=== PATIENT | male | born 1950 | race Two or more races ===

== ENCOUNTER 2017-02-13 20:35 | Emergency (ER) | payer MEDICARE, OTHER ==
[~2017-02-13] VITALS: Ht 182.9 cm; Wt 111.1 kg
[2017-02-13 20:40] VITALS: BP 116/95
[2017-02-13 21:07] LABS: Basophils # (auto) 0.1 uL; Basophils % (auto) 0.6 % (0.0-2.0); Eosinophils # (auto) 0 uL; Eosinophils % (auto) 0.1 % (0.0-7.0); Hematocrit 46.8 % (41.0-53.0); Hemoglobin 15.9 g/dL (13.5-17.5); Lymphocytes # (auto) 1.2 uL; Lymphocytes % (auto) 8.8 % (10.0-50.0); Mean Corpuscular Hemoglobin 32.8 pg (28.0-32.0); Mean Corpuscular Volume 96.4 fL (80.0-100.0); Mean Platelet Volume 8.6 fL (6.9-10.8); Monocytes # (auto) 0.7 uL; Monocytes % (auto) 4.7 % (0.0-12.0); Neutrophils % (auto) 85.8 % (37.0-80.0); Platelet Count (auto) 243 10^3/uL (140-450); White Blood Cell 13.9 10^3/uL (4.4-10.8)
[2017-02-13 21:28] LABS: Albumin 4.3 g/dL (3.4-5.0); Alkaline Phosphatase 92 U/L (45-117); Amylase 42 U/L (25-115); Anion Gap 16 (5-15); Aspartate Aminotransferase 27 U/L (15-37); BUN/Creatinine Ratio 15.7; Bilirubin, Total 0.6 mg/dL (0.2-1.0); Blood Urea Nitrogen 18 mg/dL (7-18); Calcium 9.5 mg/dL (8.5-10.1); Carbon Dioxide 22 mmol/L (21-32); Chloride 105 mmol/L (98-107); GFR African American 82 mL/min; GFR Non-African American 68 mL/min; Glucose 155 mg/dL (74-106); Magnesium 2.2 mg/dL (1.6-2.6); Sodium 143 mmol/L (136-145); Total Protein 8.1 g/dL (6.4-8.2)
[2017-02-13 21:30] LABS: B-Type Natriuretic Peptide 24.99 pg/mL (0-100)
[2017-02-13 21:31] LABS: INR 0.96 (0.9-1.15); Partial Thromboplastin Time 22.4 sec (22.64-33.71); Prothrombin Time 10.5 sec (9.37-12.3)
== END 2017-02-14 01:15 | disposition left against medical advice (07) ==
LOC: EDBD 20:35 → ER 20:45
DX: R07.9 Chest pain, unspecified (principal); R10.9 Unspecified abdominal pain; R11.0 Nausea; Z53.21 Procedure and treatment not carried out due to patient leaving prior to being seen by health care provider
CPT/HCPCS: 36415; 80053; 82150; 83690; 83735; 83880; 84484; 85025; 85610; 85730; 93005

== ENCOUNTER 2017-10-11 22:55 | Inpatient (IN) | payer MEDICARE, OTHER ==
[~2017-10-11] VITALS: Ht 182.9 cm; Wt 95.5 kg
[~2017-10-11 22:55] MED LIST: ALBU2TAB4; CHOL20007 PO; DICY10CA55 PO; DIPH25TA35 PO; ESCI20TA51; ESCI20TA51 PO; FLUT0.05 NAS; GAB100C; GABA100C9 PO; IBUP-781 PO; LORA-352 PO; MULT-228 PO; OMEP20TA PO; OMEPRAZOLE; ROSU10TA16 PO; ROSU1TAB9; TIZA4TAB3; TIZA4TAB9 PO
[2017-10-12 00:32] LABS: Basophils # (auto) 0.1 uL; Basophils % (auto) 0.5 % (0.0-2.0); Eosinophils # (auto) 0 uL; Eosinophils % (auto) 0.1 % (0.0-7.0); Hemoglobin 15.1 g/dL (13.5-17.5); Lymphocytes # (auto) 0.6 uL; Lymphocytes % (auto) 4.3 % (10.0-50.0); Mean Corpuscular Hemoglobin 33.5 pg (28.0-32.0); Mean Corpuscular Hgb Conc. 34.3 g/dL (32.0-36.0); Mean Corpuscular Volume 97.7 fL (80.0-100.0); Monocytes # (auto) 0.6 uL; Monocytes % (auto) 4.4 % (0.0-12.0); Neutrophils # (auto) 12.2 uL; Neutrophils % (auto) 90.7 % (37.0-80.0); Platelet Count (auto) 259 10^3/uL (140-450); Red Blood Cells 4.51 10^6/uL (4.5-5.90); Red Cell Distribution Width 13.7 % (11.8-14.3); White Blood Cell 13.4 10^3/uL (4.4-10.8)
[2017-10-12 00:49] LABS: Amylase 42 U/L (25-115); Anion Gap 12 (5-15); BUN/Creatinine Ratio 15.9; Blood Urea Nitrogen 17 mg/dL (7-18); Calcium 9.4 mg/dL (8.5-10.1); Carbon Dioxide 21 mmol/L (21-32); Chloride 108 mmol/L (98-107); GFR African American 89 mL/min; GFR Non-African American 73 mL/min; Glucose 187 mg/dL (74-106); Lipase 79 U/L (73-393); Magnesium 2.3 mg/dL (1.6-2.6); Potassium 3.8 mmol/L (3.5-5.1); Sodium 141 mmol/L (136-145)
[2017-10-12 01:03] LABS: Alanine Aminotransferase 27 U/L (16-61); Alkaline Phosphatase 96 U/L (45-117); Aspartate Aminotransferase 14 U/L (15-37); Bilirubin, Total 0.6 mg/dL (0.2-1.0); Total Protein 8.2 g/dL (6.4-8.2)
[2017-10-12] MEDS ORDERED: MORPHINE SULFATE 4 MG/ML SYR/VIAL IV ONE ×2 (06:00→07:15)
[2017-10-12] MEDS ORDERED: ONDANSETRON HCL 4 MG/2 ML VIAL IV ONE ×2 (06:00→07:15)
[2017-10-12] MEDS ORDERED: SODIUM CHLORIDE 0.9% 1,000 ML IV ONE ×2 (07:06)
[2017-10-12] MEDS ORDERED: PIPERACILLIN-TAZOB 3.375GM 100 ML IV ONE (07:30)
[2017-10-12] MEDS ORDERED: metroNIDAZOLE 500MG/100ML 100 ML IV ONE (07:45)
[2017-10-12] MEDS: SODIUM CHLORIDE 0.9% 1,000 ML IV SCH ×2 (08:53→17:13)
[2017-10-12] MEDS ORDERED: NITROGLYCERIN 0.4 MG SL TAB SL PRN (09:00)
[2017-10-12] MEDS ORDERED: LORazepam 2MG/ML-1ML VIAL IV PRN (09:00)
[2017-10-12] MEDS ORDERED: DEXTROSE (50%) 50ML SYRG IV PRN (09:00)
[2017-10-12] MEDS ORDERED: MORPHINE SULF INJ 2 MG/ML SYRINGE 1ML IV PRN (09:00)
[2017-10-12] MEDS ORDERED: cefTRIAXone 1GM/10ml IVPUSH 10 ML IV ONE (09:00)
[2017-10-12] MEDS: metroNIDAZOLE 500MG/100ML 100 ML IV SCH ×3 (09:58→22:39)
[2017-10-12] MEDS: FAMOTIDINE (10MG/ML) 2ML VL IV SCH ×2 (10:08→21:16)
[2017-10-12] MEDS: cefTRIAXone 1GM/10ml IVPUSH 10 ML IV SCH (10:08)
[2017-10-12] MEDS: ENOXAPARIN SOD 40 MG/0.4 ML SYRINGE SC SCH (10:47)
[2017-10-12] MEDS ORDERED: PERCOT PO (10:59)
[2017-10-12] MEDS ORDERED: InsuLIN REG 1unit/0.01ml Soln (100units/ml) SC SCH (12:00)
[2017-10-12] MEDS ORDERED: ACCU-CHEK COMFORT CURVE STRIP VI SCH (12:00)
[2017-10-12] MEDS: MORPHINE SULF INJ 2 MG/ML SYRINGE 1ML IV PRN (12:45)
[2017-10-12 13:00] VITALS: BP 145/85
[2017-10-12 16:18] LABS: Urine Bacteria NONE SEEN /hpf (None Seen); Urine Blood 1+ /uL (Negative); Urine Mucus FEW (None Seen); Urine Specific Gravity 1.033 (1.001-1.035); Urine WBC 2 /hpf (0 - 3)
[2017-10-12] MEDS: PROMETHAZINE HCL 25 MG/ML 1ML IV PRN (17:13)
[2017-10-12 18:14] VITALS: BP 156/92
[2017-10-12 21:51] VITALS: BP 138/89
[2017-10-13] MEDS: metroNIDAZOLE 500MG/100ML 100 ML IV SCH ×4 (04:23→22:06)
[2017-10-13 04:45] VITALS: BP 125/78
[2017-10-13] MEDS: SODIUM CHLORIDE 0.9% 1,000 ML IV SCH ×2 (04:58→14:22)
[2017-10-13 06:15] LABS: Basophils # (auto) 0.1 uL; Basophils % (auto) 0.7 % (0.0-2.0); Eosinophils # (auto) 0.2 uL; Eosinophils % (auto) 2.2 % (0.0-7.0); Hemoglobin 12.5 g/dL (13.5-17.5); Lymphocytes # (auto) 1.8 uL; Lymphocytes % (auto) 23.8 % (10.0-50.0); Mean Corpuscular Hemoglobin 33.1 pg (28.0-32.0); Mean Corpuscular Hgb Conc. 33.6 g/dL (32.0-36.0); Mean Corpuscular Volume 98.2 fL (80.0-100.0); Monocytes # (auto) 0.8 uL; Neutrophils # (auto) 4.6 uL; Neutrophils % (auto) 62.3 % (37.0-80.0); Platelet Count (auto) 205 10^3/uL (140-450); Red Blood Cells 3.77 10^6/uL (4.5-5.90); Red Cell Distribution Width 13.5 % (11.8-14.3); White Blood Cell 7.4 10^3/uL (4.4-10.8)
[2017-10-13 08:00] VITALS: BP 155/83
[2017-10-13] MEDS: cefTRIAXone 1GM/10ml IVPUSH 10 ML IV SCH (08:57)
[2017-10-13] MEDS: FAMOTIDINE (10MG/ML) 2ML VL IV SCH ×2 (08:57→22:05)
[2017-10-13] MEDS: MORPHINE SULF INJ 2 MG/ML SYRINGE 1ML IV PRN (08:57)
[2017-10-13] MEDS: ENOXAPARIN SOD 40 MG/0.4 ML SYRINGE SC SCH (09:43)
[2017-10-13] MEDS: PROMETHAZINE HCL 25 MG/ML 1ML IV PRN (09:59)
[2017-10-13] MEDS ORDERED: LORazepam 2MG/ML-1ML VIAL IV PRN (11:15)
[2017-10-13] MEDS ORDERED: ONDANSETRON HCL 4 MG/2 ML VIAL IV ONE (11:15)
[2017-10-13] MEDS ORDERED: ONDANSETRON HCL 4 MG/2 ML VIAL IV PRN (11:15)
[2017-10-13] MEDS ORDERED: LORazepam 2MG/ML-1ML VIAL IV ONE (11:15)
[2017-10-13 12:30] VITALS: BP 150/81
[2017-10-13 21:45] VITALS: BP 154/89
[2017-10-14] MEDS: SODIUM CHLORIDE 0.9% 1,000 ML IV SCH ×3 (00:53→20:53)
[2017-10-14] MEDS: metroNIDAZOLE 500MG/100ML 100 ML IV SCH ×4 (04:39→22:49)
[2017-10-14 04:48] VITALS: BP 157/94
[2017-10-14 09:00] VITALS: BP 149/87
[2017-10-14] MEDS ORDERED: ceFAZolin 1GM/50ML 50 ML IV ONE (09:20)
[2017-10-14] MEDS: FAMOTIDINE (10MG/ML) 2ML VL IV SCH ×2 (09:56→22:49)
[2017-10-14] MEDS: cefTRIAXone 1GM/10ml IVPUSH 10 ML IV SCH (09:56)
[2017-10-14] MEDS: ENOXAPARIN SOD 40 MG/0.4 ML SYRINGE SC SCH (09:58)
[2017-10-14 13:00] VITALS: BP 125/75
[2017-10-14 13:11] VITALS: BP 129/83
[2017-10-14] MEDS ORDERED: ONDANSETRON ODT 4 MG TAB PO ONE (13:30)
[2017-10-14] MEDS ORDERED: LORazepam 0.5 MG TAB PO ONE (13:30)
[2017-10-14] MEDS ORDERED: ONDANSETRON HCL 4 MG/2 ML VIAL IV PRN (14:15)
[2017-10-14] MEDS ORDERED: ONDANSETRON HCL 4 MG/2 ML VIAL IV ONE (14:15)
[2017-10-14] MEDS: LORazepam 2MG/ML-1ML VIAL IV PRN (14:32)
[2017-10-14 17:56] VITALS: BP 147/96
[2017-10-14] MEDS: MORPHINE SULF INJ 2 MG/ML SYRINGE 1ML IV PRN (18:59)
[2017-10-14 19:01] LABS: Albumin 3.3 g/dL (3.4-5.0); BUN/Creatinine Ratio 13.5
[2017-10-14 19:04] LABS: Bilirubin, Total 0.4 mg/dL (0.2-1.0); Total Protein 6.7 g/dL (6.4-8.2)
[2017-10-14 19:21] LABS: Potassium 2.7 mmol/L (3.5-5.1)
[2017-10-14] MEDS ORDERED: POTASSIUM CHL 20MEQ/100ML 100 ML IV ONE (20:30)
[2017-10-14 21:30] VITALS: BP 150/92
[2017-10-15] MEDS: LORazepam 2MG/ML-1ML VIAL IV PRN ×3 (00:27→17:22)
[2017-10-15 05:00] VITALS: BP 138/74
[2017-10-15] MEDS: metroNIDAZOLE 500MG/100ML 100 ML IV SCH ×4 (05:16→23:00)
[2017-10-15] MEDS: SODIUM CHLORIDE 0.9% 1,000 ML IV SCH ×2 (06:54→17:21)
[2017-10-15 07:28] LABS: BUN/Creatinine Ratio 13.3; Calcium 8.1 mg/dL (8.5-10.1); Potassium 3.2 mmol/L (3.5-5.1)
[2017-10-15 07:44] VITALS: BP 135/79
[2017-10-15 07:44] LABS: Basophils # (auto) 0 uL; Basophils % (auto) 0.5 % (0.0-2.0); Eosinophils # (auto) 0 uL; Eosinophils % (auto) 0.5 % (0.0-7.0); Hematocrit 37.3 % (41.0-53.0); Lymphocytes # (auto) 1.8 uL; Lymphocytes % (auto) 21.4 % (10.0-50.0); Mean Corpuscular Hemoglobin 33.9 pg (28.0-32.0); Mean Corpuscular Volume 96.7 fL (80.0-100.0); Monocytes # (auto) 0.9 uL; Monocytes % (auto) 10.6 % (0.0-12.0); Neutrophils # (auto) 5.5 uL; Platelet Count (auto) 221 10^3/uL (140-450); Red Blood Cells 3.85 10^6/uL (4.5-5.90); Red Cell Distribution Width 13.3 % (11.8-14.3); White Blood Cell 8.2 10^3/uL (4.4-10.8)
[2017-10-15] MEDS: cefTRIAXone 1GM/10ml IVPUSH 10 ML IV SCH (08:46)
[2017-10-15] MEDS: FAMOTIDINE (10MG/ML) 2ML VL IV SCH ×2 (08:46→21:22)
[2017-10-15] MEDS: ENOXAPARIN SOD 40 MG/0.4 ML SYRINGE SC SCH (09:43)
[2017-10-15] MEDS: MORPHINE SULF INJ 2 MG/ML SYRINGE 1ML IV PRN ×2 (10:01→14:25)
[2017-10-15 12:17] VITALS: BP 144/88
[2017-10-15] MEDS: POTASSIUM CHL 20MEQ/100ML 100 ML IV SCH ×3 (14:25→19:26)
[2017-10-15 16:43] VITALS: BP 134/76
[2017-10-15] MEDS: PANTOPRAZOLE 40 MG TAB PO SCH (21:22)
[2017-10-15] MEDS ORDERED: TEMAZEPAM 15 MG CAP PO ONE (21:45)
[2017-10-15 22:00] VITALS: BP 130/83
[2017-10-16] MEDS: POTASSIUM CHL 20MEQ/100ML 100 ML IV SCH ×2 (00:18→03:15)
[2017-10-16] MEDS: SODIUM CHLORIDE 0.9% 1,000 ML IV SCH ×2 (03:12→21:24)
[2017-10-16] MEDS ORDERED: POTASSIUM CHL 20MEQ/100ML 100 ML IV ONE (03:14)
[2017-10-16 05:00] VITALS: BP 138/85
[2017-10-16] MEDS: metroNIDAZOLE 500MG/100ML 100 ML IV SCH ×5 (06:01→21:24)
[2017-10-16 07:34] VITALS: BP 145/87
[2017-10-16 07:44] LABS: Basophils # (auto) 0 uL; Basophils % (auto) 0.6 % (0.0-2.0); Eosinophils # (auto) 0.1 uL; Eosinophils % (auto) 1.3 % (0.0-7.0); Hematocrit 38.5 % (41.0-53.0); Hemoglobin 13.5 g/dL (13.5-17.5); Lymphocytes # (auto) 1.5 uL; Lymphocytes % (auto) 23.3 % (10.0-50.0); Mean Corpuscular Hgb Conc. 35.1 g/dL (32.0-36.0); Mean Corpuscular Volume 97.1 fL (80.0-100.0); Monocytes # (auto) 0.7 uL; Monocytes % (auto) 11.3 % (0.0-12.0); Neutrophils # (auto) 4.2 uL; Neutrophils % (auto) 63.5 % (37.0-80.0); Nucleated Red Blood Cells % 0.1 %; Platelet Count (auto) 228 10^3/uL (140-450); Red Blood Cells 3.97 10^6/uL (4.5-5.90); Red Cell Distribution Width 13.2 % (11.8-14.3); White Blood Cell 6.6 10^3/uL (4.4-10.8)
[2017-10-16 07:55] LABS: INR 0.99 (0.9-1.15); Prothrombin Time 10.6 sec (9.27-12.13)
[2017-10-16 08:00] VITALS: BP 145/87
[2017-10-16 08:01] LABS: BUN/Creatinine Ratio 8.3; Calcium 8.3 mg/dL (8.5-10.1); Potassium 3.9 mmol/L (3.5-5.1)
[2017-10-16] MEDS ORDERED: NALOXONE HCL 0.4 MG/ML VIAL ONE (09:05)
[2017-10-16] MEDS ORDERED: FLUMAZENIL 0.1 MG/ML INJ 10ML MDV IV ONE (09:05)
[2017-10-16] MEDS ORDERED: SODIUM CHLORIDE LOCK 10 ML ONE (09:05)
[2017-10-16] MEDS ORDERED: LIDOCAINE VISCOUS 2% 15ML UD ONE (09:05)
[2017-10-16] MEDS ORDERED: diphenhdrAMINE HCL 50 MG/1 ML VL ONE (09:05)
[2017-10-16] MEDS: FAMOTIDINE (10MG/ML) 2ML VL IV SCH ×2 (09:21→21:30)
[2017-10-16] MEDS: cefTRIAXone 1GM/10ml IVPUSH 10 ML IV SCH (09:21)
[2017-10-16] MEDS: PANTOPRAZOLE 40 MG TAB PO SCH (09:21)
[2017-10-16] MEDS: ENOXAPARIN SOD 40 MG/0.4 ML SYRINGE SC SCH (09:31)
[2017-10-16] MEDS: MIDAZOLAM HCL 5 MG/ML-1ML VIAL ONE ×2 (11:16→11:19)
[2017-10-16] MEDS: fentaNYL CITRATE 100 MCG/2 ML VL ONE ×2 (11:16→11:19)
[2017-10-16] MEDS: MORPHINE SULF INJ 2 MG/ML SYRINGE 1ML IV PRN ×2 (16:10→21:30)
[2017-10-16 16:22] VITALS: BP 154/89
[2017-10-16 21:30] VITALS: BP 135/85
[2017-10-16] MEDS ORDERED: TEMAZEPAM 15 MG CAP PO ONE (22:15)
[2017-10-17] MEDS: SODIUM CHLORIDE 0.9% 1,000 ML IV SCH (04:06)
[2017-10-17] MEDS: metroNIDAZOLE 500MG/100ML 100 ML IV SCH ×2 (04:07→10:33)
[2017-10-17 05:00] VITALS: BP 140/83
[2017-10-17 08:16] VITALS: BP 120/79
[2017-10-17] MEDS ORDERED: PANTOPRAZOLE 40 MG TAB PO SCH (10:00)
[2017-10-17] MEDS: cefTRIAXone 1GM/10ml IVPUSH 10 ML IV SCH (10:33)
[2017-10-17] MEDS: FAMOTIDINE (10MG/ML) 2ML VL IV SCH (10:33)
[2017-10-17] MEDS: ENOXAPARIN SOD 40 MG/0.4 ML SYRINGE SC SCH (10:34)
[2017-10-17 13:33] VITALS: BP 129/83
== END 2017-10-17 14:00 | disposition home or self-care (01) | DRG 872 ==
LOC: ER 22:55 → TELE 22:56 → TELE-EAST 10-12 10:16
PROVIDERS: ADMIT Internal Medicine; ATTEND Family Medicine
PROC: 0DB68ZX Excision of Stomach, Via Natural or Artificial Opening Endoscopic, Diagnostic (ICD-10-PCS; principal; 2017-10-16 11:16)
DX: A41.9 Sepsis, unspecified organism (principal); R45.851 Suicidal ideations; K57.32 Diverticulitis of large intestine without perforation or abscess without bleeding; E78.5 Hyperlipidemia, unspecified; E78.00 Pure hypercholesterolemia, unspecified; E86.0 Dehydration; G89.29 Other chronic pain; K44.9 Diaphragmatic hernia without obstruction or gangrene; K63.89 Other specified diseases of intestine; K29.70 Gastritis, unspecified, without bleeding; Z80.8 Family history of malignant neoplasm of other organs or systems; Z88.8 Allergy status to other drugs, medicaments and biological substances; Z82.49 Family history of ischemic heart disease and other diseases of the circulatory system; Z83.3 Family history of diabetes mellitus
CPT/HCPCS: 36415; 43239; 71046; 74176; 80048; 80053; 81001; 82150; 82378; 82962; 83036; 83605; 83690; 83735; 84484; 85025; 85610; 85730; 86850; 86900; 86901; 87040; 93005; 96361; 96365; 96375; 96376; A6257; J0690; J0696; J2250; J2405; J2543; J3480; J3490; Q0162